=== PATIENT | male | born 1980 | race Caucasian/White ===

== ENCOUNTER 2018-02-22 06:17 | Day surgery (SDC) | payer OTHER, BC ==
[2018-02-16 12:17] VITALS: BMI 42.4
[2018-02-22] MEDS ORDERED: BUPIVACAINE HCL 0.25% 125 MG/50 ML VIAL ONE (07:10)
[2018-02-22] MEDS ORDERED: LIDOCAINE HCL 1%, 10 MG/ML (20ML VIAL) ONE (07:10)
[2018-02-22] MEDS ORDERED: BUPIVACAINE HCL/PF 0.5% (5MG/ML) 10 ML VIAL ONE (07:10)
[2018-02-22] MEDS ORDERED: MIDAZOLAM HCL 2 MG/2 ML SINGLE DOSE VIAL ONE (07:36)
[2018-02-22] MEDS ORDERED: SUCCINYLCHOLINE CHLORIDE 200 MG/10 ML VIAL ONE (08:06)
[2018-02-22] MEDS ORDERED: PROPOFOL 20 ML ONE ×3 (08:06)
[2018-02-22] MEDS ORDERED: DEXAMETHASONE SOD PHOSPHATE 4 MG/1 ML VIAL ONE (08:13)
[2018-02-22] MEDS ORDERED: ONDANSETRON 4 MG/2 ML VIAL ONE (08:13)
--- NOTE | 2018-02-22 08:17 | HP ---
DATE OF ADMISSION: 02/22/2018 BRIEF HISTORY: This is a 37-year-old gentleman I had met back in September 2017. Due to [facility] guidelines I have been asked to redo an H & P. Please refer to previous H & P for complete details. Patient has a mass overlying his back he has had for many years. He wished to have this removed. PAST MEDICAL HISTORY: No coronary artery disease, hypertension or diabetes. PAST SURGICAL HISTORY: Spinal surgeries. ALLERGIES: LYRICA and SSRI. MEDICATIONS: Omeprazole, Xanax and oxycodone. SOCIAL HISTORY: Patient does not smoke nor drink. PHYSICAL EXAMINATION:Back: He has a large soft tissue mass in the upper 1/3 of his back. The mass is well demarcated, soft. IMPRESSION: Suspect chronic back cyst. PLAN: Will plan for excision in the operating room. LISA BAUMAN M.D. [id number]
[2018-02-22] MEDS ORDERED: LACTATED RINGERS SOLUTION 1,000 ML IV SCH (09:00)
[2018-02-22] MEDS ORDERED: ONDANSETRON 4 MG/2 ML VIAL IVPUSH PRN (09:00)
[2018-02-22] MEDS ORDERED: oxyCODONE HCL 5 MG TABLET PO PRN (09:00)
[2018-02-22] MEDS ORDERED: ACETAMINOPHEN 500 MG TABLET (FP) PO ONE (09:01)
--- NOTE | 2018-02-22 09:04 | OP ---
DATE OF OPERATION: 02/22/2018 PREOPERATIVE DIAGNOSIS: Soft tissue mass of the back, suspect cyst. POSTOPERATIVE DIAGNOSIS: Soft tissue mass of the back, suspect cyst. PROCEDURE: Excision of large back cyst with 7 cm intermediate wound closure. SURGEON: Nik Molina MD INDUSTRIAL ENGINEERING MANAGER: None. ANESTHESIA: MAC/1% Xylocaine without epinephrine, approximately 10 mL. ESTIMATED BLOOD LOSS: Minimal. SPECIMEN: Back cyst. INDICATIONS FOR PROCEDURE: This is a 37-year-old gentleman with a longstanding history of having a back cyst. He wished to have this removed. The patient was identified and appropriately positioned on the operating room table. After placement of IV sedation, the back was prepped and draped in the usual sterile fashion with ChloraPrep. One percent lidocaine without epinephrine was used for local anesthesia, approximately 10 mL. The skin around the cyst was incised in elliptical fashion and oriented longitudinally. The cyst was the size of a golf ball. The cyst was excised down to the level of the subcutaneous tissue. It was excised en bloc and intact. Hemostasis was achieved with cautery as needed. The dermis reapproximated with interrupted inverted 3-0 chromic sutures and the skin closed with vertical mattress 3-0 Prolene followed by Dermabond. At the conclusion of this case, sponge and needle counts were correct. ATTESTATION: A brief op note handwritten on the preprinted form. [facility] queried prior to giving any narcotics. Aga STARR [id number] CC: Jalen Guevara MD
[2018-02-22 10:17] VITALS: PULSE 72; TEMP 98.1
[2018-02-22 10:40] VITALS: BP 132/72
--- NOTE | 2018-02-24 17:29 | PATH ---
Surgical Pathology Report Patient Name: DELON BOLTON Med. Rec. #: [id number] /Age/Gender: 1980 (Age: 37) / M Account: [id number] Location: [facility] Taken: 02/22/2018 Received: 02/22/2018 Reported: 02/24/2018 Physicians: Nik Molina Specimen(s) Received BACK CYST Clinical History Back cyst Final Diagnosis BACK, CYST, EXCISION: EPIDERMAL INCLUSION CYST. Electronically Signed Martha Marquez M.D. Gross Description Received in formalin labeled "back cyst," is a 7.5 x 3.0 cm goodrich, elliptical, unremarkable, unoriented portion of skin excised to depth of 3.8 cm. Sectioning reveals an intact cystic structure containing goodrich sebaceous material. Instrument Repairer Helper sections are submitted in 2 cassettes. /02/23/2018 saudi/02/23/2018
== END 2018-02-22 10:45 | disposition home or self-care (01) ==
LOC: FASU 06:17
PROVIDERS: ATTEND Surgery
PROC: 0JB70ZZ Excision of Back Subcutaneous Tissue and Fascia, Open Approach (ICD-10-PCS; principal; 2018-02-22 08:20)
DX: D21.6 Benign neoplasm of connective and other soft tissue of trunk, unspecified (principal)
CPT/HCPCS: 88304-TC; 94760